=== PATIENT | female | born 2000 | race American Indian/Alaskan Native ===

== ENCOUNTER 2021-06-25 17:30 | Outpatient (CLI) | payer MEDICAID ==
[2021-06-25 18:20] VITALS: BP 121/69
[2021-06-25 21:36] LABS: Bacteria,Urine 1+ /HPF (Negative); Bilirubin,Urine NEG (Negative); Blood,Urine LG (Negative); Color,Urine Yellow (Yellow); Mucus,Urine 1+ /HPF; Urobilinogen,Urine < 2.0 mg/dL (<2.0)
[2021-06-25 21:39] LABS: RBC,Urine > 182.0 /HPF (0.0-6.0)
== END 2021-06-25 22:03 | disposition home or self-care (01) ==
LOC: TRG 17:30 → APU 17:31 → TRG 22:03
PROVIDERS: ATTEND Obstetrics & Gynecology
DX: O47.1 False labor at or after 37 completed weeks of gestation (principal); Z3A.38 38 weeks gestation of pregnancy
CPT/HCPCS: 36415; 59025; 81001; 84112; 87086; Q0177

== ENCOUNTER 2021-07-14 15:29 | Outpatient (CLI) | payer MEDICAID ==
[2021-07-14 16:17] VITALS: BP 108/62
== END 2021-07-14 18:00 | disposition home or self-care (01) ==
LOC: TRG 15:29 → APU 15:30 → TRG 18:00
PROVIDERS: ATTEND Obstetrics & Gynecology
DX: O26.893 Other specified pregnancy related conditions, third trimester (principal); R10.2 Pelvic and perineal pain; Z3A.41 41 weeks gestation of pregnancy
CPT/HCPCS: 59025